=== PATIENT | male | born 1985 | race African-American/Black ===

== ENCOUNTER 2017-07-03 11:36 | Inpatient (IN) | payer OTHER ==
[~2017-07-03] VITALS: Ht 180.3 cm; Wt 54.4 kg
[2017-07-03] VITALS (12 sets, daily range): BP systolic 109–138; BP diastolic 59–83
[~2017-07-03 11:36] MED LIST: INSU3INS6 SUBCUT
[2017-07-03] MEDS ORDERED: SODIUM CHLORIDE 0.9% 1,000 ML IV ONE ×3 (13:14→16:27)
[2017-07-03 13:44] LABS: BG BASE EXCESS -21.7 mmol/L (-2.0-2.0); BG CARBOXYHEMOGLOBIN 0.3 % (0.5-1.5); BG DEOXYHEMOGLOBIN 2.2 % (0.0-5.0); BG FRACTION INSPIRED OXYGEN 21; BG METHEMOGLOBIN 0.2 % (0.0-1.5); BG OXYGEN SATURATION 97.8 % (92.0-98.5); BG OXYHEMOGLOBIN 97.3 % (94.0-97.0); BG PCO2 15.3 mmHg (35.0-45.0); BG PH 7.132 (7.350-7.450); BG SAMPLE SITE LEFT BRACHIAL; BG VENT MODE ROOM AIR
[2017-07-03 14:19] LABS: BASOPHILS % 0.1 % (0.0-2.0); HEMATOCRIT. 50.3 % (42.0-52.0); HEMOGLOBIN. 15.6 g/dL (14.0-18.0); LYMPHOCYTES % 10.4 % (20.0-50.0); MEAN CORPUSCULAR VOLUME 90.6 fL (80.0-94.0); MEAN PLATELET VOLUME 10.1 fl (7.4-10.4); MONOCYTES % 6.8 % (2.0-8.0); NEUTROPHILS % 82.7 % (40.0-76.0); PLATELET 419 x1000/uL (130-400); RED BLOOD CELL COUNT 5.55 mill/uL (4.7-6.1); RED CELL DISTRIBUTION WIDTH 15.5 % (11.6-14.6)
[2017-07-03 15:01] LABS: CHLORIDE 82 mEq/L (98-107)
[2017-07-03] MEDS ORDERED: FUROSEMIDE 100MG/10ML VIAL IV STA (15:14)
[2017-07-03] MEDS ORDERED: DEXTROSE 50% WATER 50ML SYRINGE IV ONE (15:15)
[2017-07-03] MEDS ORDERED: ALBUTEROL (0.083%) 2.5MG/3ML NEB HHN ONE (15:15)
[2017-07-03] MEDS ORDERED: SODIUM BICARBONATE 8.4% 1 MEQ/ML 50ML SYR IV ONE (15:15)
[2017-07-03] MEDS ORDERED: INSULIN REGULAR (DRIP) 100 UNITS in SODIUM CHLORIDE 0.9% 99 ML IV SCH (15:15)
[2017-07-03] MEDS ORDERED: INSULIN REGULAR (HUMULIN R) 300UNITS/3ML IV ONE ×2 (15:15)
[2017-07-03] MEDS ORDERED: CALCIUM CHLORIDE 1GM/10ML SYR IV ONE (15:15)
[2017-07-03 15:17] LABS: CARBON DIOXIDE 7 mEq/L (21-32)
[2017-07-03] MEDS ORDERED: IPRATROPIUM/ALBUTEROL 0.5-3(2.5)MG/3ML NEB INH PRN (17:15)
[2017-07-03] MEDS ORDERED: INSULIN REGULAR (DRIP) 100 UNITS in SODIUM CHLORIDE 0.9% 100 ML IV SCH (17:15)
[2017-07-03] MEDS ORDERED: ONDANSETRON HCL 4MG/2ML VIAL IV PRN (17:15)
[2017-07-03] MEDS: BLOOD SUGAR DIAGNOSTIC STRIP TEST SCH ×7 (17:30→23:00)
[2017-07-03 17:44] LABS: BASOPHILS % 0.5 % (0.0-2.0); HEMOGLOBIN. 14.7 g/dL (14.0-18.0); LYMPHOCYTES % 12.8 % (20.0-50.0); MEAN CORPUSCULAR HEMOGLOBIN 28.5 pg (28.0-32.0); MEAN CORPUSCULAR VOLUME 87.3 fL (80.0-94.0); MEAN PLATELET VOLUME 8.8 fl (7.4-10.4); MONOCYTES % 2.3 % (2.0-8.0); NEUTROPHILS % 84.4 % (40.0-76.0); PLATELET 368 x1000/uL (130-400); RED BLOOD CELL COUNT 5.16 mill/uL (4.7-6.1); RED CELL DISTRIBUTION WIDTH 14.3 % (11.6-14.6)
[2017-07-03] MEDS ORDERED: DEXTROSE 50% WATER 50ML SYRINGE IV PRN ×2 (17:45)
[2017-07-03] MEDS ORDERED: ENOXAPARIN 30MG/0.3ML SYR SUBCUT SCH (18:00)
[2017-07-03 18:07] LABS: PHOSPHORUS 6.6 mg/dL (2.5-4.9)
[2017-07-03] MEDS: INSULIN REGULAR (DRIP) 100 UNITS in SODIUM CHLORIDE 0.9% 99 ML IV SCH ×2 (18:28→20:17)
[2017-07-03] MEDS: SODIUM CHLORIDE 0.9% 1,000 ML IV SCH (18:59)
[2017-07-03] MEDS: PIPERACILLIN/TAZ 3.375G PREMIX 50 ML IV SCH (20:24)
[2017-07-04] VITALS (24 sets, daily range): BP systolic 90–142; BP diastolic 37–88
[2017-07-04] MEDS: BLOOD SUGAR DIAGNOSTIC STRIP TEST SCH ×11 (01:00→12:16)
[2017-07-04] MEDS: INSULIN REGULAR (DRIP) 100 UNITS in SODIUM CHLORIDE 0.9% 99 ML IV SCH (01:09)
[2017-07-04 01:26] LABS: CARBON DIOXIDE 27 mEq/L (21-32); CHLORIDE 106 mEq/L (98-107); CREATINE KINASE 278 IU/L (39-308); CREATINE KINASE MB FRACTION 11.4 ng/mL (0.5-3.6); TROPONIN I 0.05 ng/mL (0.00-0.04)
[2017-07-04] MEDS: SODIUM CHLORIDE 0.9% 1,000 ML IV SCH (01:51)
[2017-07-04] MEDS: PIPERACILLIN/TAZ 3.375G PREMIX 50 ML IV SCH ×2 (03:06→12:14)
[2017-07-04] MEDS: DEXT 5%/0.9% NACL KCL 20MEQ/L 1,000 ML IV SCH ×2 (04:30→10:00)
[2017-07-04 06:40] LABS: CHLORIDE 108 mEq/L (98-107)
[2017-07-04 06:56] LABS: CARBON DIOXIDE 29 mEq/L (21-32); CREATINE KINASE 279 IU/L (39-308); HDL CHOLESTEROL 74 mg/dL (40-59); LDL CHOLESTEROL 63 mg/dL (5-100); TROPONIN I 0.05 ng/mL (0.00-0.04)
[2017-07-04] MEDS ORDERED: DEXTROSE 50% WATER 50ML SYRINGE IV PRN (08:30)
[2017-07-04 08:32] LABS: BASOPHILS % 0.2 % (0.0-2.0); HEMATOCRIT. 37.6 % (42.0-52.0); HEMOGLOBIN. 12.8 g/dL (14.0-18.0); LYMPHOCYTES % 9.9 % (20.0-50.0); MEAN CORPUSCULAR HEMOGLOBIN 27.9 pg (28.0-32.0); MEAN PLATELET VOLUME 8.9 fl (7.4-10.4); NEUTROPHILS % 81.9 % (40.0-76.0); PLATELET 236 x1000/uL (130-400); RED BLOOD CELL COUNT 4.59 mill/uL (4.7-6.1); RED CELL DISTRIBUTION WIDTH 13.9 % (11.6-14.6)
[2017-07-04] MEDS ORDERED: BLOOD SUGAR DIAGNOSTIC STRIP TEST SCH (08:44)
[2017-07-04 09:32] LABS: CARBON DIOXIDE 30 mEq/L (21-32); CHLORIDE 109 mEq/L (98-107)
[2017-07-04] MEDS ORDERED: INSULIN DETEMIR UD 100 UNITS/ML SYR SUBCUT SCH (10:00)
[2017-07-04] MEDS ORDERED: DEXT 5%/0.9% NACL KCL 20MEQ/L 1,000 ML IV SCH (10:31)
[2017-07-04] MEDS ORDERED: LANTUSUD SUBCUT ×2 (10:46→11:22)
[2017-07-04 11:46] LABS: BETA HYDROXYBUTYRATE 11.2 mMol/L (0.0-0.3)
[2017-07-04] MEDS ORDERED: INSULIN LISPRO 100 UNITS/ML SUBCUT SCH (13:20)
[2017-07-04 13:43] LABS: CARBON DIOXIDE 27 mEq/L (21-32); CHLORIDE 103 mEq/L (98-107)
== END 2017-07-04 14:36 | disposition home or self-care (01) | DRG 469 ==
LOC: ER 11:36 → EDBEDREQ 13:42 → ENRESERV 15:15 → CVICU 15:39 → EDBEDREQTM 15:41 → EDBEDREQ 15:41
PROVIDERS: ADMIT Internal Medicine; ATTEND Internal Medicine
DX: N17.9 Acute kidney failure, unspecified (principal); E10.10 Type 1 diabetes mellitus with ketoacidosis without coma; E87.5 Hyperkalemia; E87.1 Hypo-osmolality and hyponatremia; D72.829 Elevated white blood cell count, unspecified; F17.210 Nicotine dependence, cigarettes, uncomplicated; Z79.4 Long term (current) use of insulin; Z90.49 Acquired absence of other specified parts of digestive tract; Z68.1 Body mass index [BMI] 19.9 or less, adult
CPT/HCPCS: 36415; 36600; 71045; 80048; 80053; 80061; 82010; 82375; 82550; 82553; 82805; 82962; 83036; 83735; 84100; 84443; 84484; 85025; 87040; 93005; 93970; 96374; 96375; 99291; J1650; J1815; J1940; J2543; J3480; J3490; J7030; J7042; J7050

== ENCOUNTER 2017-10-30 14:42 | Inpatient (IN) | payer OTHER ==
[~2017-10-30] VITALS: Ht 170.2 cm; Wt 65.3 kg
[~2017-10-30 14:42] MED LIST changes: +ATOR20TA PO; -INSU3INS6 SUBCUT; +LANTUSUD SUBCUT
[2017-10-30 16:48] LABS: BASOPHILS % 0.4 % (0.0-2.0); EOSINOPHILS % 0.2 % (0.0-5.0); HEMATOCRIT. 47.8 % (42.0-52.0); HEMOGLOBIN. 15.7 g/dL (14.0-18.0); LYMPHOCYTES % 21.4 % (20.0-50.0); MEAN CORPUSCULAR HEMOGLOBIN 28.6 pg (28.0-32.0); MEAN PLATELET VOLUME 8.6 fl (7.4-10.4); MONOCYTES % 3.2 % (2.0-8.0); NEUTROPHILS % 74.8 % (40.0-76.0); PLATELET 450 x1000/uL (130-400); RED BLOOD CELL COUNT 5.49 mill/uL (4.7-6.1); RED CELL DISTRIBUTION WIDTH 14.6 % (11.6-14.6)
[2017-10-30 16:51] LABS: CHLORIDE 91 mEq/L (98-107)
[2017-10-30] MEDS ORDERED: SODIUM CHLORIDE 0.9% 1,000 ML IV ONE ×2 (17:22→18:45)
[2017-10-30] MEDS ORDERED: ONDANSETRON HCL 4MG/2ML VIAL IV ONE (17:30)
[2017-10-30 18:05] LABS: CHLORIDE 93 mEq/L (98-107)
[2017-10-30 18:13] LABS: BETA HYDROXYBUTYRATE 8.7 mMol/L (0.0-0.3)
[2017-10-30 18:25] LABS: CLARITY URINE CLEAR (CLEAR); COLOR URINE YELLOW (YELLOW); KETONES URINE 4+ (NEGATIVE); LEUKOCYTE ESTERASE URINE NEGATIVE (NEGATIVE); NITRITE URINE NEGATIVE (NEGATIVE); OCCULT BLOOD URINE NEGATIVE (NEGATIVE); PROTEIN URINE NEGATIVE (NEGATIVE); SPECIFIC GRAVITY URINE 1.023 (1.005-1.030); UROBILINOGEN URINE 0.2 E.U./dL (0.2-1.0)
[2017-10-30 18:36] LABS: METHADONE URINE SCREEN NEGATIVE (NEGATIVE); OPIATES URINE SCREEN NEGATIVE (NEGATIVE)
[2017-10-30 18:37] LABS: *AMPHETAMINES SCREEN URINE PRESUMTIVE POSITIVE (NEGATIVE); *BARBITURATES SCREEN URINE NEGATIVE (NEGATIVE); *BENZODIAZEPINES SCREEN URINE NEGATIVE (NEGATIVE); *COCAINE SCREEN URINE NEGATIVE (NEGATIVE); CANNABINOID URINE SCREEN NEGATIVE (NEGATIVE); PHENCYCLIDINE URINE SCREEN NEGATIVE (NEGATIVE)
[2017-10-30] MEDS ORDERED: SODIUM BICARBONATE 8.4% 1 MEQ/ML 50ML SYR IV ONE (18:45)
[2017-10-30] MEDS ORDERED: INSULIN REGULAR (DRIP) 100 UNITS in SODIUM CHLORIDE 0.9% 99 ML IV SCH (18:45)
[2017-10-30] MEDS ORDERED: INSULIN REGULAR (HUMULIN R) 300UNITS/3ML IV ONE (18:45)
[2017-10-30 20:13] LABS: CHLORIDE 102 mEq/L (98-107)
[2017-10-30] MEDS ORDERED: IPRATROPIUM/ALBUTEROL 0.5-3(2.5)MG/3ML NEB INH PRN (21:30)
[2017-10-30] MEDS ORDERED: ONDANSETRON HCL 4MG/2ML VIAL IV PRN (21:30)
[2017-10-30 21:46] LABS: BG BASE EXCESS -10.7 mmol/L (-2.0-2.0); BG CARBOXYHEMOGLOBIN 1.1 % (0.5-1.5); BG DEOXYHEMOGLOBIN 8.3 % (0.0-5.0); BG FRACTION INSPIRED OXYGEN 21; BG HCO3 ACT 13.2 mmol/L (22.0-26.0); BG METHEMOGLOBIN 0.1 % (0.0-1.5); BG OXYGEN SATURATION 91.6 % (92.0-98.5); BG OXYHEMOGLOBIN 90.5 % (94.0-97.0); BG PCO2 25.5 mmHg (35.0-45.0); BG PH 7.332 (7.350-7.450); BG PO2 63.9 mmHg (75.0-100.0); BG SAMPLE SITE RIGHT RADIAL; BG TOTAL HEMOGLOBIN 15.2 g/dL (12.0-18.0); BG VENT MODE ROOM AIR
[2017-10-30 23:01] VITALS: BP 110/73
[2017-10-30 23:30] VITALS: BP 118/69
[2017-10-30] MEDS: DEXT 5%/0.9% NACL KCL 20MEQ/L 1,000 ML IV SCH (23:30)
[2017-10-30] MEDS ORDERED: DEXTROSE 50% WATER 50ML SYRINGE IV PRN (23:30)
[2017-10-31] VITALS (23 sets, daily range): BP systolic 86–119; BP diastolic 48–79
[2017-10-31] MEDS ORDERED: INSULIN REGULAR (DRIP) 100 UNITS in SODIUM CHLORIDE 0.9% 100 ML IV SCH ×2
[2017-10-31 00:25] LABS: CHLORIDE 102 mEq/L (98-107)
[2017-10-31 00:34] LABS: CREATINE KINASE 114 IU/L (39-308)
[2017-10-31 00:36] LABS: CREATINE KINASE MB FRACTION 0.9 ng/mL (0.5-3.6)
[2017-10-31] MEDS: DEXT 5%/0.9% NACL KCL 20MEQ/L 1,000 ML IV SCH (05:57)
[2017-10-31 05:58] LABS: BASOPHILS % 0.3 % (0.0-2.0); EOSINOPHILS % 1.3 % (0.0-5.0); HEMATOCRIT. 41.8 % (42.0-52.0); HEMOGLOBIN. 14.1 g/dL (14.0-18.0); LYMPHOCYTES % 31.6 % (20.0-50.0); MEAN CORPUSCULAR HEMOGLOBIN 28.7 pg (28.0-32.0); MEAN CORPUSCULAR VOLUME 84.9 fL (80.0-94.0); MEAN PLATELET VOLUME 8.7 fl (7.4-10.4); MONOCYTES % 7.6 % (2.0-8.0); NEUTROPHILS % 59.2 % (40.0-76.0); PLATELET 352 x1000/uL (130-400); RED BLOOD CELL COUNT 4.93 mill/uL (4.7-6.1); RED CELL DISTRIBUTION WIDTH 14.5 % (11.6-14.6)
[2017-10-31 06:02] LABS: CHLORIDE 103 mEq/L (98-107)
[2017-10-31 06:09] LABS: LDL CHOLESTEROL 83 mg/dL (5-100)
[2017-10-31 06:10] LABS: HDL CHOLESTEROL 70 mg/dL (40-59)
[2017-10-31 06:11] LABS: CREATINE KINASE 109 IU/L (39-308)
[2017-10-31] MEDS ORDERED: BLOOD SUGAR DIAGNOSTIC STRIP TEST SCH (06:30)
[2017-10-31] MEDS ORDERED: SODIUM CHLORIDE 0.9% 1,000 ML IV SCH ×2 (06:30)
[2017-10-31] MEDS ORDERED: INSULIN LISPRO 100 UNITS/ML SUBCUT SCH (07:00)
[2017-10-31] MEDS ORDERED: ENOXAPARIN 40MG/0.4ML SYR SUBCUT SCH (09:00)
[2017-10-31] MEDS ORDERED: INSLIS SUBCUT (10:37)
[2017-10-31] MEDS ORDERED: INSULIN GLARGINE UD 100 UNITS/ML SYR SUBCUT SCH (12:00)
== END 2017-10-31 11:00 | disposition home or self-care (01) | DRG 420 ==
LOC: ER 16:20 → MICUNO 18:50 → ENRESERV 22:49 → EDBEDREQ 22:49
PROVIDERS: ADMIT Internal Medicine; ATTEND Internal Medicine
DX: E11.10 Type 2 diabetes mellitus with ketoacidosis without coma (principal); E87.8 Other disorders of electrolyte and fluid balance, not elsewhere classified; E83.39 Other disorders of phosphorus metabolism; E87.1 Hypo-osmolality and hyponatremia; E87.5 Hyperkalemia; F15.90 Other stimulant use, unspecified, uncomplicated; F17.210 Nicotine dependence, cigarettes, uncomplicated; Z60.2 Problems related to living alone; Z79.4 Long term (current) use of insulin; Z71.6 Tobacco abuse counseling; Z79.899 Other long term (current) drug therapy
CPT/HCPCS: 36415; 36600; 80048; 80053; 80061; 80305; 81003; 82010; 82375; 82550; 82553; 82805; 82962; 83735; 84100; 84443; 84484; 85025; 93005; 93970; 96374; 96375; 96376; 99291; G0482; J1650; J1815; J2405; J3490; J7030; J7050

== ENCOUNTER 2018-08-29 19:16 | Emergency (ER) | payer OTHER ==
[~2018-08-29] VITALS: Ht 177.8 cm; Wt 68.2 kg
[~2018-08-29 19:16] MED LIST changes: -ATOR20TA PO; +INSLIS SUBCUT
[2018-08-29] MEDS ORDERED: INSULIN LISPRO 100 UNITS/ML SUBCUT ONE (23:00)
[2018-08-29 23:28] VITALS: BP 114/81
== END 2018-08-29 23:46 | disposition home or self-care (01) ==
LOC: ER 19:16
DX: E11.65 Type 2 diabetes mellitus with hyperglycemia (principal); Z79.4 Long term (current) use of insulin; F17.210 Nicotine dependence, cigarettes, uncomplicated
CPT/HCPCS: 82962; 93005; 96372; 99283; J1815; Z7610

== ENCOUNTER 2018-09-09 19:25 | Inpatient (IN) | payer MEDICAID, OTHER ==
[~2018-09-09] VITALS: Ht 177.8 cm; Wt 65.8 kg
[2018-09-10] MEDS ORDERED: SODIUM CHLORIDE 0.9% 1,000 ML IV ONE ×5 (04:33→19:00)
[2018-09-10] MEDS ORDERED: ONDANSETRON HCL 4MG/2ML INJ IV ONE (04:45)
[2018-09-10 05:08] LABS: BG BASE EXCESS -24.1 mmol/L (-2.0-2.0); BG CARBOXYHEMOGLOBIN 0.5 % (0.5-1.5); BG DEOXYHEMOGLOBIN 2.4 % (0.0-5.0); BG FRACTION INSPIRED OXYGEN 21; BG HCO3 ACT 3.2 mmol/L (22.0-26.0); BG METHEMOGLOBIN 0.5 % (0.0-1.5); BG OXYGEN SATURATION 97.6 % (92.0-98.5); BG OXYHEMOGLOBIN 96.6 % (94.0-97.0); BG PCO2 10.8 mmHg (35.0-45.0); BG PH 7.093 (7.350-7.450); BG PO2 134.9 mmHg (75.0-100.0); BG SAMPLE SITE RIGHT RADIAL; BG VENT MODE ROOM AIR
[2018-09-10 05:11] LABS: BASOPHILS % 0.3 % (0.0-2.0); HEMATOCRIT. 52.4 % (42.0-52.0); HEMOGLOBIN. 15.9 g/dL (14.0-18.0); LYMPHOCYTES % 7.3 % (20.0-50.0); MEAN CORPUSCULAR HEMOGLOBIN 29.4 pg (28.0-32.0); MEAN CORPUSCULAR VOLUME 96.6 fL (80.0-94.0); MEAN PLATELET VOLUME 8.4 fl (7.4-10.4); MONOCYTES % 4.4 % (2.0-8.0); PLATELET 558 x1000/uL (130-400); RED BLOOD CELL COUNT 5.42 mill/uL (4.7-6.1); RED CELL DISTRIBUTION WIDTH 17.8 % (11.6-14.6)
[2018-09-10 05:18] LABS: CHLORIDE 86 mEq/L (98-107)
[2018-09-10 05:24] LABS: CLARITY URINE CLEAR (CLEAR); COLOR URINE YELLOW (YELLOW); KETONES URINE 3+ (NEGATIVE); LEUKOCYTE ESTERASE URINE NEGATIVE (NEGATIVE); NITRITE URINE NEGATIVE (NEGATIVE); OCCULT BLOOD URINE NEGATIVE (NEGATIVE); PROTEIN URINE NEGATIVE (NEGATIVE); SPECIFIC GRAVITY URINE 1.021 (1.005-1.030); UROBILINOGEN URINE 0.2 E.U./dL (0.2-1.0)
[2018-09-10] MEDS ORDERED: INSULIN REGULAR (DRIP) 100 UNITS in SODIUM CHLORIDE 0.9% 99 ML IV SCH (05:30)
[2018-09-10] MEDS ORDERED: ALBUTEROL (0.083%) 2.5MG/3ML NEB HHN ONE (06:00)
[2018-09-10] MEDS ORDERED: SODIUM BICARBONATE 8.4% 1 MEQ/ML 50ML SYR IV ONE ×2 (06:00)
[2018-09-10] MEDS ORDERED: CALCIUM CHLORIDE 1GM/10ML SYR IV ONE (06:00)
[2018-09-10 06:22] LABS: CHLORIDE 94 mEq/L (98-107)
[2018-09-10 06:46] LABS: PHOSPHORUS 8.7 mg/dL (2.5-4.9)
[2018-09-10 07:39] LABS: BETA HYDROXYBUTYRATE 13.7 mMol/L (0.0-0.3)
[2018-09-10 09:16] LABS: CHLORIDE 101 mEq/L (98-107)
[2018-09-10 11:07] LABS: CHLORIDE 102 mEq/L (98-107)
[2018-09-10 11:13] LABS: PHOSPHORUS 2.3 mg/dL (2.5-4.9)
[2018-09-10] MEDS ORDERED: DOCUSATE SODIUM 100MG CAPSULE PO PRN (13:00)
[2018-09-10] MEDS ORDERED: IPRATROPIUM/ALBUTEROL 0.5-3(2.5)MG/3ML NEB INH PRN (13:00)
[2018-09-10] MEDS ORDERED: HYDROCODONE/ACETAMINOPHEN 5/325MG TABLET PO PRN (13:00)
[2018-09-10] MEDS ORDERED: ACETAMINOPHEN 325MG TABLET PO PRN (13:00)
[2018-09-10] MEDS ORDERED: ONDANSETRON HCL 4MG/2ML INJ IV PRN (13:00)
[2018-09-10] MEDS ORDERED: CLONIDINE 0.1MG TABLET PO PRN (13:00)
[2018-09-10 13:32] LABS: BG BASE EXCESS -4.8 mmol/L (-2.0-2.0); BG CARBOXYHEMOGLOBIN 0.4 % (0.5-1.5); BG DEOXYHEMOGLOBIN 2.6 % (0.0-5.0); BG HCO3 ACT 19.6 mmol/L (22.0-26.0); BG METHEMOGLOBIN 0.3 % (0.0-1.5); BG OXYGEN SATURATION 97.4 % (92.0-98.5); BG OXYHEMOGLOBIN 96.7 % (94.0-97.0); BG PCO2 34.3 mmHg (35.0-45.0); BG PH 7.375 (7.350-7.450); BG PO2 99.6 mmHg (75.0-100.0); BG SAMPLE SITE RIGHT BRACHIAL; BG TOTAL HEMOGLOBIN 12.2 g/dL (12.0-18.0); BG VENT MODE ROOM AIR
[2018-09-10 16:12] LABS: CHLORIDE 105 mEq/L (98-107)
[2018-09-10] MEDS ORDERED: INSULIN REGULAR (DRIP) 100 UNITS in SODIUM CHLORIDE 0.9% 100 ML IV SCH (16:30)
[2018-09-10 17:42] LABS: *BENZODIAZEPINES SCREEN URINE NEGATIVE (NEGATIVE); *COCAINE SCREEN URINE NEGATIVE (NEGATIVE)
[2018-09-10 17:43] LABS: *AMPHETAMINES SCREEN URINE NEGATIVE (NEGATIVE); *BARBITURATES SCREEN URINE NEGATIVE (NEGATIVE); CANNABINOID URINE SCREEN NEGATIVE (NEGATIVE); OPIATES URINE SCREEN NEGATIVE (NEGATIVE); PHENCYCLIDINE URINE SCREEN NEGATIVE (NEGATIVE)
[2018-09-10 17:46] LABS: METHADONE URINE SCREEN NEGATIVE (NEGATIVE)
[2018-09-10 18:04] LABS: BG BASE EXCESS -9.7 mmol/L (-2.0-2.0); BG CARBOXYHEMOGLOBIN 0.4 % (0.5-1.5); BG DEOXYHEMOGLOBIN 2.7 % (0.0-5.0); BG FRACTION INSPIRED OXYGEN 21; BG HCO3 ACT 14.8 mmol/L (22.0-26.0); BG METHEMOGLOBIN 0.2 % (0.0-1.5); BG OXYGEN SATURATION 97.3 % (92.0-98.5); BG OXYHEMOGLOBIN 96.7 % (94.0-97.0); BG PCO2 28.4 mmHg (35.0-45.0); BG PH 7.336 (7.350-7.450); BG PO2 102.3 mmHg (75.0-100.0); BG SAMPLE SITE RIGHT BRACHIAL; BG TOTAL HEMOGLOBIN 11.5 g/dL (12.0-18.0); BG VENT MODE ROOM AIR
[2018-09-10 18:13] LABS: CHLORIDE 101 mEq/L (98-107)
[2018-09-10 18:20] LABS: BETA HYDROXYBUTYRATE 3.7 mMol/L (0.0-0.3)
[2018-09-10] MEDS ORDERED: DEXTROSE 50% WATER 50ML SYRINGE IV PRN (19:00)
[2018-09-10] MEDS ORDERED: INSULIN GLARGINE UD 100 UNITS/ML SYR SUBCUT NR (20:00)
[2018-09-10 20:30] VITALS: BP 101/66
[2018-09-10] MEDS: BLOOD SUGAR DIAGNOSTIC STRIP TEST SCH (21:00)
[2018-09-10 21:50] LABS: CHLORIDE 99 mEq/L (98-107)
[2018-09-10 22:18] VITALS: BP 101/66
[2018-09-10] MEDS: INSULIN LISPRO 100 UNITS/ML SUBCUT SCH (23:04)
[2018-09-11] VITALS: BP_SYST 105; BP_SYST 118; BP_DIAS 45; BP_DIAS 71
[2018-09-11 01:45] LABS: CHLORIDE 97 mEq/L (98-107)
[2018-09-11 04:00] VITALS: BP_SYST 108; BP_DIAS 51; BP_DIAS 57
[2018-09-11] MEDS: BLOOD SUGAR DIAGNOSTIC STRIP TEST SCH ×4 (06:10→17:43)
[2018-09-11] MEDS: INSULIN LISPRO 100 UNITS/ML SUBCUT SCH ×4 (06:21→20:46)
[2018-09-11 06:46] LABS: BASOPHILS % 0.3 % (0.0-2.0); EOSINOPHILS % 0.3 % (0.0-5.0); HEMATOCRIT. 31.3 % (42.0-52.0); HEMOGLOBIN. 10.5 g/dL (14.0-18.0); MEAN CORPUSCULAR HEMOGLOBIN 29.6 pg (28.0-32.0); MEAN CORPUSCULAR VOLUME 87.7 fL (80.0-94.0); MONOCYTES % 8.3 % (2.0-8.0); NEUTROPHILS % 67.1 % (40.0-76.0); PLATELET 206 x1000/uL (130-400); RED BLOOD CELL COUNT 3.57 mill/uL (4.7-6.1); RED CELL DISTRIBUTION WIDTH 16.7 % (11.6-14.6)
[2018-09-11 06:59] LABS: CHLORIDE 100 mEq/L (98-107)
[2018-09-11 08:00] VITALS: BP 100/60
[2018-09-11 08:20] LABS: CHLORIDE 105 mEq/L (98-107)
[2018-09-11 12:00] VITALS: BP 101/57
[2018-09-11 13:19] LABS: CHLORIDE 104 mEq/L (98-107)
[2018-09-11] MEDS ORDERED: POTASSIUM CHLORIDE 20MEQ TABLET SR PO NR (13:45)
[2018-09-11 16:00] VITALS: BP 102/68
[2018-09-11 16:00] LABS: CHLORIDE 102 mEq/L (98-107)
[2018-09-11 20:00] VITALS: BP 103/59
[2018-09-11] MEDS ORDERED: INSULIN GLARGINE UD 100 UNITS/ML SYR SUBCUT SCH (22:00)
== END 2018-09-11 22:17 | disposition short-term general hospital (02) | DRG 420 ==
LOC: ER 19:25 → EDBEDREQ 09-10 04:40 → 8WST 09-10 05:36 → EDBEDREQ 09-10 05:40 → EDBEDREQTM 09-10 05:40 → EDBEDREQSVC 09-10 19:06 → ENRESERV 09-10 20:40
PROVIDERS: ADMIT Internal Medicine; ATTEND Internal Medicine
DX: E11.10 Type 2 diabetes mellitus with ketoacidosis without coma (principal); E87.5 Hyperkalemia; D72.829 Elevated white blood cell count, unspecified; E86.9 Volume depletion, unspecified; R00.0 Tachycardia, unspecified; F17.200 Nicotine dependence, unspecified, uncomplicated; R74.0 Nonspecific elevation of levels of transaminase and lactic acid dehydrogenase [LDH]; Z79.4 Long term (current) use of insulin; Z91.19 Patient's noncompliance with other medical treatment and regimen; Z88.8 Allergy status to other drugs, medicaments and biological substances; Z79.899 Other long term (current) drug therapy
CPT/HCPCS: 36415; 36600; 71045; 80048; 80076; 80305; 82010; 82375; 82805; 82962; 83605; 83735; 84100; 93005; 94640; 96374; 96375; 99284; 99291; J1815; J2405; J3490; J7030; J7050; J7611